=== PATIENT | female | born 1990 | race Caucasian/White ===

== ENCOUNTER → 2018-09-29 13:57 | Outpatient (CLI) | payer OTHER, MEDICAID, SELFPAY ==
[2018-09-29 15:06] LABS: Cholesterol 170 mg/dL (140-199); HDL Cholesterol 99 mg/dL (40-60); LDL Cholesterol Calculated 63 mg/dL (<100); Triglycerides 39 mg/dL (35-150)
[2018-09-29 15:24] LABS: Vitamin D 25 Hydroxy (D3) 43.6 ng/mL (30.0-100.0)
== END ==
PROVIDERS: PCP Student in an Organized Health Care Education/Training Program; Visit Provider Student in an Organized Health Care Education/Training Program
DX: Z13.220 Encounter for screening for lipoid disorders (principal); E55.9 Vitamin D deficiency, unspecified
CPT/HCPCS: 36415; 80061; 82306

== ENCOUNTER → 2019-07-12 12:39 | Outpatient (CLI) | payer OTHER, MEDICAID, SELFPAY ==
--- NOTE | 2019-07-12 12:52 | DI.RAD.S_ITS ---
PROCEDURE: XR CHEST 2V INDICATIONS: FUO TECHNIQUE: 2 views of the chest were acquired. COMPARISON: [facility], BREAST UNILATERAL LIMITED, 05/10/2017, 10:06. [facility], BREAST UNILATERAL LIMITED, 05/10/2017, 10:14. FINDINGS: Surgical changes and devices: None. Lungs and pleura: Lungs are clear. No pleural effusions or pneumothorax. Mediastinum: Mediastinal contours are normal. Heart size is normal. Bones and chest wall: No suspicious bony abnormalities. Prominent dextroconvex curvature of the lower thoracic spine are present. No Soft tissues appear unremarkable. IMPRESSION: No acute cardiopulmonary process is evident. Dictated by: Ton Spaulding M.D. on 07/12/2019 at 15:11 Approved by: Ton Spaulding M.D. on 07/12/2019 at 15:36
[2019-07-12 12:57] LABS: Add Manual Diff / Slide Review NO; Basophils Absolute Auto 0 /uL (0-100); Basophils Percent Auto 0.6 % (0-2); Eosinophils Absolute Auto 100 /uL (0-450); Eosinophils Percent Auto 1.9 % (2-4); Hematocrit 42.5 % (36-46); Hemoglobin 14.2 g/dL (12.0-16.0); Lymphocytes Absolute Auto 1800 /uL (1100-4500); Lymphocytes Percent Auto 24.6 % (25-40); Mean Corpuscular HGB Conc 33.4 % (30-36); Mean Corpuscular Hemoglobin 29.9 PG (26-34); Mean Corpuscular Volume 89.4 fL (80-100); Monocytes Absolute Auto 600 /uL (0-900); Monocytes Percent Auto 8.3 % (3-14); Neutrophils Absolute Auto 4800 /uL (1500-7000); Neutrophils Percent Auto 64.6 % (50-75); Platelet Count 205 X10^3/uL (150-400); Red Blood Cell Count 4.75 X10^6/uL (4.0-5.2); Red Cell Distribution Width 13.4 % (11.6-14.8); White Blood Cell Count 7.4 X10^3/uL (4.5-11.0)
[2019-07-12 13:32] LABS: Erythrocyte Sedimentation Rate 1 MM/HR (0-20)
[2019-07-12 13:52] LABS: Appearance Urine UA CLEAR; Bilirubin Urine UA NEGATIVE (NEGATIVE); Color Urine UA YELLOW; Glucose Urine UA NEGATIVE (Negative); Ketones Urine UA NEGATIVE (NEGATIVE); Leukocyte Esterase Urine UA NEGATIVE (NEGATIVE); Nitrite Urine UA NEGATIVE (Negative); Occult Blood Urine UA NEGATIVE (Negative); Protein Urine UA NEGATIVE (Negative); Specific Gravity Urine UA <=1.005 (1.000-1.035); Urobilinogen Urine UA 0.2 E.U./dL (0.2); pH Urine UA 6.5 (4.5-8.0)
== END ==
PROVIDERS: PCP Student in an Organized Health Care Education/Training Program; Visit Provider Nurse Practitioner
DX: R50.9 Fever, unspecified (principal); R10.2 Pelvic and perineal pain; N89.8 Other specified noninflammatory disorders of vagina
CPT/HCPCS: 36415; 71046; 81003; 85025; 85651; 87070; 87205

== ENCOUNTER → 2019-07-14 10:43 | Outpatient (CLI) | payer OTHER, MEDICAID, SELFPAY ==
--- NOTE | 2019-07-14 10:45 | DI.US.S_ITS ---
LIMITED ULTRASOUND OF LEFT BREAST: 07/14/2019 CLINICAL: Palpable left breast lump. Comparison is made to exam dated: 05/10/2017 [facility]. Color flow and real-time ultrasound of the left breast 1-2 o'clock region were performed. Dukes scale images of the real-time examination were reviewed. Targeted ultrasound was performed in the region of the patient's reported focal palpable area of concern in the left breast at 1:30 position 5 cm from the nipple. There is dense fibroglandular tissue with an underlying partially imaged breast implant. No underlying breast mass or abnormality is identified. IMPRESSION: BENIGN 1) Dense fibroglandular tissue overlying the patient's breast implant are identified at the area of palpable concern. No suspicious masses or abnormalities are identified at the area of concern in the left breast at 1:30 position 5 cm from the nipple. Recommend clinical follow-up for further evaluation and management of the patient's reported symptoms. 2) There is no sonographic evidence of malignancy in the imaged areas of the left breast. Annual screening mammography beginning at age 40 is recommended, unless earlier high-risk screening is warranted due to individual patient risk factors for the development of breast malignancy. The patient is advised to monitor her breasts and to return sooner for re-evaluation should she feel anything grow or change. This exam was interpreted at Station ID: [id number]. Electronically Signed By: Stephan Fernando M.D. ecl/:07/14/2019 11:28:19 letter sent: Clinical Evaluation Ultrasound BI-RADS: 2 Benign
--- NOTE | 2019-07-14 10:45 | DI.US.S_ITS ---
PROCEDURE: US PELVIC COMPLETE INDICATIONS: PELVIC PAIN, VAGINAL DISCHARGE, SWOLLEN INGUINAL LYMPH NODES TECHNIQUE: Real-time scanning was performed of the pelvic organs, with image documentation. Additional endovaginal scanning was necessary due to incomplete visualization of the adnexal and endometrial structures by transabdominal scanning. COMPARISON: [facility], , PELVIC COMPLETE, 07/28/2017, 10:29. [facility], , PELVIC COMPLETE, 10/28/2018, 11:43. FINDINGS: Transabdominal scanning: Limited scanning through the kidneys shows a mild degree of hydronephrosis of the right kidney. There is a mild amount of free pelvic fluid seen, which is considered to be within physiologic limits. Prominent groin lymph nodes are seen. Endovaginal scanning: Uterus: Uterus is normal in size at 9.2 x 3.8 x 5.1 cm. The endometrium measures 13 mm in combined thickness. Blood flow can be seen along the endometrial stripe there is a mild degree of nonvascular debris is seen along the endometrial stripe itself. An IUD is seen, within the lower uterine segment. Ovaries: The right ovary measures 5.2 x 3.6 x 5.3 cm within the right ovary, there is a complex cyst with a fishnet-type echotexture that measures up to 4.5 cm. The left ovary measures 3.2 x 1.9 x 2.2 cm and demonstrates an unremarkable appearance. No adnexal masses are seen. IMPRESSION: An IUD is seen within the lower uterine segment. A mild degree of debris can be seen along the endometrial stripe, which is attributed to blood. However, please correlate with known patient history. Mild right-sided hydronephrosis. There is a likely 4.5 cm hemorrhagic cyst involving the right ovary. At clinical discretion, a followup pelvic ultrasound is suggested in 6 weeks to assure resolution/ improvement. Dictated by: Jason Meng M.D. on 07/14/2019 at 15:49 Approved by: Jason Meng M.D. on 07/14/2019 at 15:53
== END ==
PROVIDERS: PCP Student in an Organized Health Care Education/Training Program; Visit Provider Hospitalist
DX: N63.21 Unspecified lump in the left breast, upper outer quadrant (principal); R10.2 Pelvic and perineal pain; R59.0 Localized enlarged lymph nodes; N89.8 Other specified noninflammatory disorders of vagina; N83.292 Other ovarian cyst, left side; N13.30 Unspecified hydronephrosis; Z98.82 Breast implant status; Z97.5 Presence of (intrauterine) contraceptive device
CPT/HCPCS: 76642; 76830; 76856

== ENCOUNTER → 2019-10-27 16:09 | Outpatient (CLI) | payer OTHER, MEDICAID, SELFPAY ==
--- NOTE | 2019-10-27 16:12 | DI.US.S_ITS ---
PROCEDURE: US PELVIC COMPLETE INDICATIONS: SWOLLEN LYMPH NODES, GROIN, RTO COMPLEX CYST TECHNIQUE: Real-time scanning was performed of the pelvic organs, with image documentation. Additional endovaginal scanning was necessary due to incomplete visualization of the adnexal and endometrial structures by transabdominal scanning. COMPARISON: [facility], , US PELVIC COMPLETE, 07/14/2019, 11:21. FINDINGS: Transabdominal scanning: Limited scanning through the kidneys shows no hydronephrosis. No pathologic free abdominal or pelvic fluid. Endovaginal scanning: Uterus: Uterus is normal in size at 9.1 x 3.4 x 4.3 cm. The endometrium measures 3.1 mm in combined thickness. No endometrial mass or fluid is seen. Ovaries: Right ovary measures 3.9 x 2.6 x 3.4 cm in size and is within normal limits. Left ovary measures 4.8 x 3.2 x 4 cm in size and contain multiple complex appearing cystic structures. The 2 largest ones measures 1.5 x 1.5 x 1.6 cm and 2.2 x 1.8 x 2.1 cm in size. Prominent bilateral inguinal lymph nodes are seen measures up to 1.5 cm in size on right side and measures up to 1.4 cm in size on the left side. IMPRESSION: 1. Multiple complex cysts in left ovary as above, sonographic followup is recommended. Normal-appearing right ovary. 2. Normal appearing uterus and endometrium. 3. Nonspecific mildly enlarged bilateral inguinal lymph nodes as above. Dictated by: John Paige M.D. on 10/27/2019 at 21:00 Approved by: John Paige M.D. on 10/27/2019 at 21:04
== END ==
PROVIDERS: Family Provider Student in an Organized Health Care Education/Training Program; PCP Student in an Organized Health Care Education/Training Program; Visit Provider Nurse Practitioner
DX: R59.0 Localized enlarged lymph nodes (principal); N83.292 Other ovarian cyst, left side
CPT/HCPCS: 76830; 76856

== ENCOUNTER → 2019-11-13 09:41 | Outpatient (CLI) | payer OTHER, MEDICAID, SELFPAY ==
--- NOTE | 2019-11-13 | PATH_ITS ---
Note [facility] Accession Number: [id number] TESTS RESULT FLAG UNITS REF RANGE LAB Clinician Provided Cytology Information No. of containers..01 ThinPrep Vial No. of containers..07 Previously Prepared Cytology Slide LEFT GROIN DIAGNOSIS: 02 LEFT GROIN NEGATIVE FOR CYTOLOGICALLY MALIGNANT CELLS. VERY SCANTLY CELLULAR SPECIMEN. PLEASE SEE COMMENT. COMMENT: Poorly preserved, small lymphocytes present on one pass. If lymphadenopathy persists, surgical extirpation could be considered, if clinically appropriate. Pathologist ICD10: 02 R59.9 PATHOLOGY FOR MALIGNANCY Coral Hernadez MD, Pathologist NPI- [id number] Jeevan [place], [employer] ([facility]) 01 30 CC, CLEAR, CLEAR RECEIVED: 2 ALCOHOL FIXED AND 5 QUICK STAINED SLIDES. /[facility] 11/14/[address] [place] [address] FLAG LEGEND: L-Low Normal,H-High Normal,LL-Alert Low,HH-Alert High <-Panic Low,>-Panic High,A-Abnormal,AA-Critical Abnormal Performed at: 01 =Z [facility] [address], [place] [address] Mikhail Cartagena MD, 02 [facility] [address] [place] [phone] Lorie Callaway MD, Specimen Comment: A duplicate report has been generated due to demographic updates. Performed at: 01 [facility] [address], [place], [place] [id number] MD Mikhail Cratagena MD Phone: [phone]
--- NOTE | 2019-11-13 09:45 | DI.US.S_ITS ---
PROCEDURE: US FINE NEEDLE ASPIRATION INDICATIONS: LYMPH NODE ENLARGEMENT TECHNIQUE: The indications, alternatives, benefits, risks, and complications of the procedure were explained to the patient. Written informed consent was obtained and placed in the chart. Real-time sonography was utilized to choose the site for percutaneous lymph node sampling. The skin was prepped and draped in the usual sterile fashion. 1% lidocaine was infiltrated down to the site of interest. Serial hypodermic needles were then advanced into the site of interest under direct sonographic visualization, and serial needle aspirates were obtained. The needles were then withdrawn; a bandage was applied to the procedure site. COMPARISON: None. FINDINGS: There are multiple right and left inguinal lymph nodes however sonographically these appear grossly unremarkable. No definite cortical thickening. These are reportedly clinically worsened over time Sample site(s): Right and left inguinal lymph nodes Needle: 22 and 25 gauge. Number of passes: 7 passes on the left. 5 passes on the right.. Medications: 1% lidocaine for local anaesthesia. Complications: None. IMPRESSION: Successful ultrasound-guided bilateral inguinal lymph node fine needle aspiration, with cytology results pending. Dictated by: Kishor Vazquez M.D. on 11/13/2019 at 16:49 Approved by: Kishor Vazquez M.D. on 11/13/2019 at 16:51
--- NOTE | 2019-11-13 11:15 | PATH_ITS ---
Note [facility] Accession Number: [id number] TESTS RESULT FLAG UNITS REF RANGE LAB Clinician Provided Cytology Information No. of containers..01 Other (Miscellaneous) No. of containers..00 Previously Prepared Cytology Slide RIGHT GROIN DIAGNOSIS: 02 RIGHT GROIN NEGATIVE FOR CYTOLOGICALLY MALIGNANT CELLS. PLEASE SEE COMMENT. COMMENT: Please correlate with clinical and imaging findings. If lymphadenopathy persists, surgical extirpation could be considered, if clinically appropriate. Pathologist ICD10: 02 R59.9 PATHOLOGY FOR MALIGNANCY Coral Hernadez MD, Pathologist NPI- [id number] Magdi Hung, [employer]in[employer] Technician ([facility]) 01 20 CC, PALE PINK, CLEAR RECEIVED: 5 ALCOHOL FIXED AND 5 QUICK STAINED SLIDES. /[facility] 11/14/[address] [place] [address] FLAG LEGEND: L-Low Normal,H-High Normal,LL-Alert Low,HH-Alert High <-Panic Low,>-Panic High,A-Abnormal,AA-Critical Abnormal Performed at: 01 =Z [facility] [address], [place] [address] Mikhail Cartagena MD, 02 [facility] [address] [place] [phone] Lorie Callaway MD, Specimen Comment: A duplicate report has been generated due to demographic updates. Performed at: [address] [facility] [address] [facility], [place], [place] [id number] MD Mikhail Cartagena MD Phone: [phone]
== END ==
PROVIDERS: Family Provider Student in an Organized Health Care Education/Training Program; PCP Student in an Organized Health Care Education/Training Program; Visit Provider Nurse Practitioner
DX: R59.0 Localized enlarged lymph nodes (principal); R10.2 Pelvic and perineal pain
CPT/HCPCS: 10005; 10006

== ENCOUNTER → 2020-02-12 10:21 | Outpatient (CLI) | payer OTHER, MEDICAID, SELFPAY ==
--- NOTE | 2020-02-12 10:23 | DI.US.S_ITS ---
PROCEDURE: US PELVIC COMPLETE INDICATIONS: FOLLOW-UP LEFT OVARIAN CYSTS TECHNIQUE: Real-time scanning was performed of the pelvic organs, with image documentation. Additional endovaginal scanning was necessary due to incomplete visualization of the adnexal and endometrial structures by transabdominal scanning. COMPARISON: [facility], US, US PELVIC COMPLETE, 10/28/2018, 11:43. FINDINGS: Transabdominal scanning: Limited scanning through the kidneys shows no hydronephrosis. No pathologic free abdominal or pelvic fluid. Endovaginal scanning: Uterus: Uterus is normal in size at the 9.3 x 4.2 x 5.3 cm. The endometrium measures 5 mm in combined thickness. An intrauterine contraceptive device appears to be appropriately positioned within the uterine cavity. No focal myometrial lesions are identified. Ovaries: The right ovary measures 2.5 x 2.0 x 2.8 cm predominant follicle is present on the right ovary measuring up to 1.7 cm. The right ovary is otherwise unremarkable. The left ovary is enlarged and measures 3.4 x 2.1 x 4.7 cm and contains at least 3 separate isoechoic lesions without internal vascularity but range in size from 1.9-2.3 cm. At least 2 of these isoechoic lesions may be unchanged since the prior study. IMPRESSION: 1. Rounded nonvascular lesions within the left ovary may represent endometriomas. At least 2 are probably unchanged. There may be a new 3rd lesion. A pelvis MRI with contrast is recommended for further evaluation. 2. Unremarkable right ovary and uterus. Dictated by: Ton Spaulding M.D. on 02/12/2020 at 11:58 Approved by: Ton Spaulding M.D. on 02/12/2020 at 12:03
== END ==
PROVIDERS: Family Provider Student in an Organized Health Care Education/Training Program; PCP Student in an Organized Health Care Education/Training Program; Referring Provider Student in an Organized Health Care Education/Training Program; Visit Provider Student in an Organized Health Care Education/Training Program
DX: N83.202 Unspecified ovarian cyst, left side (principal); R59.1 Generalized enlarged lymph nodes; Z97.5 Presence of (intrauterine) contraceptive device
CPT/HCPCS: 76830; 76856

== ENCOUNTER 2022-01-01 17:05 | Emergency (ER) | payer OTHER, SELFPAY ==
[2022-01-01 17:16] VITALS: BP 134/81; PULSE 94; RESP 17; TEMP 36.9; O2SAT 100; BMI 19.1
== END 2022-01-01 19:35 | disposition left against medical advice (07) ==
PROVIDERS: Emergency Provider Emergency Medicine; Family Provider Student in an Organized Health Care Education/Training Program
DX: R10.9 Unspecified abdominal pain (principal)
CPT/HCPCS: 99281

== ENCOUNTER 2022-07-11 20:03 | Inpatient (IN) | payer OTHER, MEDICAID, SELFPAY ==
[2022-07-11 20:10] VITALS: BP 133/75; PULSE 118; RESP 18; TEMP 37.3; O2SAT 98; BMI 21.4
--- NOTE | 2022-07-11 20:24 | ED.ABDPAIN ---
HPI - Abdominal Pain General Chief Complaint: Abdominal Pain Stated Complaint: Extreme ABD pain Time Seen by Provider: 07/11/22 20:23 Source: patient Mode of arrival: Ambulatory History of Present Illness HPI narrative: 32-year-old female nonsmoker without chronic medical history presents with 2 weeks of gradually worsening generalized abdominal pain. She denies obvious provocation or palliation. She states that the pain seems to wander across her abdomen and over the past 2 days has become increasingly severe and more constant. She states the pain comes and goes with a mind of its own but when it is there it lasts for a few minutes and then resolves. She is had a significant number of loose stools over the past 2 days, stating it could be upwards of 30-40 episodes of diarrhea. She denies dizziness, weakness or lightheadedness. She has no fever or chills. She denies any new medications or recent antibiotic use. She is had no recent international travel, exposure to bad food or other sick people. Related Data Previous Rx's Medication Instructions Recorded clonazepam 0.5 mg tablet 0.5 mg PO DAILY PRN anxiety #30 06/24/22 tabs Allergies Allergy/AdvReac Type Severity Reaction Status Date / Time No Known Drug Allergies Allergy Verified 03/10/22 11:46 Review of Systems Review of Systems Narrative: GENERAL: See HPI HEENT: Denies sinus pain, ear pain, sore throat, difficulty swallowing, dizziness. RESPIRATORY: Denies dyspnea, cough, wheezing, hemoptysis, sputum. CARDIOVASCULAR: Denies chest pain, palpitations, orthopnea, edema, GASTROINTESTINAL: See HPI : Denies dysuria, frequency, incontinence, hematuria, urinary retention. MUSCULOSKELETAL: denies weakness, joint pain, or bony pain SKIN: Denies rash, skin lesions, or other NEUROLOGIC: Denies weakness, headache, numbness, change in speech, confusion, seizures, incoordination. PSYCHIATRIC: No concerning psychosocial issues. 12 point review of systems is negative except for those stated above Patient History Medical History Acne Anxiety as acute reaction to exceptional stress (04/30/17) Eczema (2002) FHx: melanoma Generalized anxiety disorder with panic attacks Intentional weight loss Scoliosis of thoracolumbar spine Surgical History History of breast augmentation (04/2016) Family History Mother Cancer Father No problems noted. Grandmother Cancer Social History Smoking Status: Never smoker Smoking Status: Never smoker alcohol intake frequency: 0-2 drinks per day Alcohol type: wine Substance Use Type: marijuana and other Exam Narrative Exam Narrative: GENERAL: [32] year old patient appears stated age. Well-developed patient, in mild distress. HEAD: Atraumatic. Normocephalic. EYES: Pupils equal round and reactive. Extraocular motions intact. No scleral icterus. No injection or drainage. ENT: Nose without bleeding, purulent drainage. Throat without erythema, tonsillar hypertrophy or exudate. Airway patent. NECK: Trachea midline. Non tender CARDIOVASCULAR: Regular rate and rhythm without murmurs, gallops, or rubs. RESPIRATORY: Clear to auscultation. Breath sounds equal bilaterally. No wheezes, rales, or rhonchi. GASTROINTESTINAL: Abdomen soft, non-tender, nondistended. Bowel sounds present in all 4 quadrants EXTREMITIES: No edema or joint tenderness. BACK: Nontender without deformity or crepitance. No flank tenderness. NEURO: AOx3. SKIN: No rash or erythema of visible areas Initial Vital Signs Initial Vital Signs: Vital Signs Temperature 99.1 F 07/11/22 20:10 Pulse Rate 118 H 07/11/22 20:10 Respiratory Rate 18 07/11/22 20:10 Blood Pressure 133/75 07/11/22 20:10 Pulse Oximetry 98 07/11/22 20:10 Oxygen Delivery Method 07/11/22 20:10 Course Orders Ordered: ED Orders 07/11/22 20:15 Complete Blood Count AUTO DIFF Stat Comprehensive Metabolic Panel Stat Lipase Stat 07/11/22 20:21 EKG-12 Lead Stat 07/11/22 20:34 GI Panel (Film Array) Stat 07/11/22 20:57 CT abdomen pelvis w con Stat 07/11/22 23:25 COVID19 -Nasal RAPID/Pre-Proc Stat Discontinued Medications Sodium Chloride (Normal Saline 0.9%) 1,000 mls @ 1,000 mls/hr IV BOLUS ONE Stop: 07/11/22 21:35 Last Infusion: 07/11/22 22:00 Dose: 0 mls/hr Documented By: Admin: 07/11/22 20:37 Dose: 1,000 mls/hr Documented By: AP Vital Signs Vital signs: Vital Signs - 8 hr 07/11/22 20:10 07/11/22 20:43 07/11/22 21:00 Temperature 99.1 F Pulse Rate 118 H 84 81 Respiratory Rate 18 Blood Pressure 133/75 Pulse Oximetry 98 100 100 Oxygen Delivery Method Room Air 07/11/22 21:44 07/11/22 21:45 07/11/22 21:45 Temperature Pulse Rate 96 H 99 H Respiratory Rate Blood Pressure 123/74 Pulse Oximetry 90 L 100 Oxygen Delivery Method MDM - Abdominal Pain Lab Data Result diagrams: 07/11/22 20:15 07/11/22 20:15 Labs: Lab Results 07/11/22 07/11/22 07/11/22 Range/Units 20:15 20:15 20:34 WBC 12.5 H (4.5-11.0) X10^3/uL RBC 4.59 (4.0-5.2) X10^6/uL Hgb 13.2 (12.0-16.0) g/dL Hct 38.9 (36-46) % MCV 84.9 (80-100) fL MCH 28.8 (26-34) PG MCHC 33.9 (30-36) % RDW 13.1 (11.6-14.8) % Plt Count 192 (150-400) X10^3/uL Neut % (Auto) 78.6 H (50-75) % Lymph % (Auto) 11.4 L (25-40) % [place] % (Auto) 8.5 (3-14) % Eos % (Auto) 0.7 L (2-4) % Baso % (Auto) 0.8 (0-2) % Neut # (Auto) 9800 H (0301-0587) /uL Lymph # (Auto) 1400 (3088-8009) /uL [place] # (Auto) 1100 H (0-900) /uL Eos # (Auto) 100 (0-450) /uL Baso # (Auto) 100 (0-100) /uL Sodium 134 L (137-145) mmol/L Potassium 3.3 L (3.4-5.1) mmol/L Chloride 104 (98-107) mmol/L Carbon Dioxide 23 (22-32) mmol/L BUN 5 L (7-17) mg/dL Creatinine 0.83 (0.52-1.04) mg/dL Estimated GFR > 60 (>60) mL/min BUN/Creatinine Ratio 6.0 (6-22) Glucose 140 H (70-100) mg/dL Calcium 8.5 (8.4-10.2) mg/dL Total Bilirubin 0.2 (0.2-1.3) mg/dL AST 20 (14-36) IU/L ALT 16 (<35) IU/L Alkaline Phosphatase 68 (38-126) U/L Total Protein 6.7 (6.3-8.2) g/dL Albumin 3.9 (3.5-5.0) g/dL Globulin 2.8 (1.7-4.1) g/dL Albumin/Globulin Ratio 1.4 (1.0-2.8) Lipase 46 (23-300) U/L Stl C. cayetanensis PCR Not detected (Not Detect) Stool Rotavirus (PCR) Not detected (Not Detect) Stool Adenovirus (PCR) Not detected (Not Detect) Stool Astrovirus (PCR) Not detected (Not Detect) Stool Cryptosporidium PCR Not detected (Not Detect) Stl E.coli Shiga Tox PCR Detected H (Not Detect) St Sh/Enteroin Ecoli PCR Not detected (Not Detect) Stool E coli O157 PCR Not Reportable Stl Enterotoxigenic E PCR Not detected (Not Detect) Stool EPEC (PCR) Not Reportable Stl E. histolytica PCR Not detected (Not Detect) Stool Giardia Lamblia PCR Not detected (Not Detect) Stool Sapovirus (PCR) Not detected (Not Detect) Stl P. shigelloides PCR Not detected (Not Detect) St Y.enterocolitica PCR Not detected (Not Detect) Stool Vibrio (PCR) Not detected (Not Detect) Stl Vibrio cholerae PCR Not detected (Not Detect) Stl Enteroaggr Ecoli PCR Not detected (Not Detect) Stl Norovirus GI/GII PCR Not detected (Not Detect) Campylobacter (PCR) Not detected (Not Detect) C. difficile Tox (PCR) Not detected (Not Detect) SARS-CoV-2 (PCR) (Negative) Salmonella (PCR) Not detected (Not Detect) 08/27/22 Range/Units 23:25 WBC (4.5-11.0) X10^3/uL RBC (4.0-5.2) X10^6/uL Hgb (12.0-16.0) g/dL Hct (36-46) % MCV (80-100) fL MCH (26-34) PG MCHC (30-36) % RDW (11.6-14.8) % Plt Count (150-400) X10^3/uL Neut % (Auto) (50-75) % Lymph % (Auto) (25-40) % [place] % (Auto) (3-14) % Eos % (Auto) (2-4) % Baso % (Auto) (0-2) % Neut # (Auto) (3591-2762) /uL Lymph # (Auto) (2937-0773) /uL [place] # (Auto) (0-900) /uL Eos # (Auto) (0-450) /uL Baso # (Auto) (0-100) /uL Sodium (137-145) mmol/L Potassium (3.4-5.1) mmol/L Chloride (98-107) mmol/L Carbon Dioxide (22-32) mmol/L BUN (7-17) mg/dL Creatinine (0.52-1.04) mg/dL Estimated GFR (>60) mL/min BUN/Creatinine Ratio (6-22) Glucose (70-100) mg/dL Calcium (8.4-10.2) mg/dL Total Bilirubin (0.2-1.3) mg/dL AST (14-36) IU/L ALT (<35) IU/L Alkaline Phosphatase (38-126) U/L Total Protein (6.3-8.2) g/dL Albumin (3.5-5.0) g/dL Globulin (1.7-4.1) g/dL Albumin/Globulin Ratio (1.0-2.8) Lipase (23-300) U/L Stl C. cayetanensis PCR (Not Detect) Stool Rotavirus (PCR) (Not Detect) Stool Adenovirus (PCR) (Not Detect) Stool Astrovirus (PCR) (Not Detect) Stool Cryptosporidium PCR (Not Detect) Stl E.coli Shiga Tox PCR (Not Detect) St Sh/Enteroin Ecoli PCR (Not Detect) Stool E coli O157 PCR Stl Enterotoxigenic E PCR (Not Detect) Stool EPEC (PCR) Stl E. histolytica PCR (Not Detect) Stool Giardia Lamblia PCR (Not Detect) Stool Sapovirus (PCR) (Not Detect) Stl P. shigelloides PCR (Not Detect) St Y.enterocolitica PCR (Not Detect) Stool Vibrio (PCR) (Not Detect) Stl Vibrio cholerae PCR (Not Detect) Stl Enteroaggr Ecoli PCR (Not Detect) Stl Norovirus GI/GII PCR (Not Detect) Campylobacter (PCR) (Not Detect) C. difficile Tox (PCR) (Not Detect) SARS-CoV-2 (PCR) Negative (Negative) Salmonella (PCR) (Not Detect) Point of care testing: Point of Care Testing Test Results Negative Urine Dip Bedside Urine Glucose Negative Bedside Urine Bilirubin - Negative Bedside Urine Ketone - Negative Urine Specific [place] 1.005 Bedside Urine Occult Blood - Negative Bedside Urine pH 6.0 Bedside Urine Protein - Negative Bedside Urine Urobilinogen - Negative Bedside Urine Nitrite - Negative Bedside Urine Leukocytes - Negative Esterase Imaging Data CT scan - abdomen/pelvis: Radiologist's Impression: [address] [address] [address] Scan Report Signed Patient: Awilda Miller MR#: [id number] : 1990 Acct:[id number] Age/Sex: 32 / F Date of Service: 07/11/22 Loc: ED Accession Number: [id number] ?? Procedure: CT abdomen pelvis w con Ordering Provider: Ang Bocanegra D.O. PROCEDURE:? CT ABDOMEN PELVIS W CON ? INDICATIONS:? severe, worsening lower abdominal pain, tachycardia, WBCs ? TECHNIQUE:? After the administration of intravenous contrast, axial sections acquired from the lung bases to the pubic symphysis.? Coronal and sagittal reformats were performed.? For radiation dose reduction, the following was used:? automated exposure control, adjustment of mA and/or kV according to patient size.? ? COMPARISON:? None. ? FINDINGS:? Image quality:? Excellent.? ? Lung bases:? Unremarkable. Heart:? No significant findings. ? ABDOMEN: Liver:? Unremarkable.? ? Gallbladder:? Unremarkable.? ? Biliary ducts:? Unremarkable.? ? Pancreas:? Unremarkable.? ? Spleen:? Unremarkable.? ? Adrenal Glands:? Unremarkable.? ? Kidneys and Ureters:? Unremarkable.? ? ? Stomach and Bowel:? Stomach and small bowel loops are unremarkable.? The left colon appears normal but the right colon from the cecum cephalad almost to the hepatic flexure shows abnormal mural thickening over a craniocaudad length of 13 cm, with the colon wall in several areas measuring up to 1.6 cm-1.8 cm Peritoneum:? No abnormal intraperitoneal fluid.? No free air.? ? Ventral Wall: ? No hernias.? Abdominal Nodes:? No retroperitoneal or mesenteric adenopathy by size criteria.? Vessels:? Aorta and inferior vena cava are normal in size.? ? PELVIS: Pelvic Organs:? Unremarkable.? ? Bladder:? Unremarkable.? ? Pelvic Nodes: No enlarged lymph nodes.? Miscellaneous: No hernias are seen. ? ? ? Bones:? Unremarkable.? IMPRESSION:? Abnormal colonic wall thickening on the right from the cecum cephalad almost to the hepatic flexure with an appearance potentially a manifestation of colon carcinoma in a young patient.? Alternatively, typhlitis or Crohn's disease should be considered.? No evidence of metastatic disease is found. ? ? Dictated by: Rob Hansen M.D. on 07/11/2022 at 21:42 ? ? Approved by: Rob Hansen M.D. on 07/11/2022 at 21:47 ? MDM Narrative Medical decision making narrative: Patient with generalized if not episodic abdominal pain but 2 days of significantly worsening symptoms with profound diarrhea and a GI panel demonstrating sugar toxin producing E coli. Patient currently with improved vital signs after fluids and reassuring labs, absent of findings consistent with hemolytic uremic syndrome will require hospitalization for ongoing evaluation. Discharge Plan Departure Patient Disposition: Admitted As Inpatient Clinical Impression: Shiga toxin-producing Escherichia coli infection Admit Date/Time: 07/11/22 23:35 Admit Provider: Beto Velez
[2022-07-11 20:34] LABS: Add Manual Diff / Slide Review NO; Basophils Absolute Auto 100 /uL (0-100); Basophils Percent Auto 0.8 % (0-2); Eosinophils Absolute Auto 100 /uL (0-450); Eosinophils Percent Auto 0.7 % (2-4); Hematocrit 38.9 % (36-46); Hemoglobin 13.2 g/dL (12.0-16.0); Lymphocytes Absolute Auto 1400 /uL (1100-4500); Lymphocytes Percent Auto 11.4 % (25-40); Mean Corpuscular HGB Conc 33.9 % (30-36); Mean Corpuscular Hemoglobin 28.8 PG (26-34); Mean Corpuscular Volume 84.9 fL (80-100); Monocytes Absolute Auto 1100 /uL (0-900); Monocytes Percent Auto 8.5 % (3-14); Neutrophils Absolute Auto 9800 /uL (1500-7000); Neutrophils Percent Auto 78.6 % (50-75); Platelet Count 192 X10^3/uL (150-400); Red Blood Cell Count 4.59 X10^6/uL (4.0-5.2); Red Cell Distribution Width 13.1 % (11.6-14.8); White Blood Cell Count 12.5 X10^3/uL (4.5-11.0)
[2022-07-11 20:37] LABS: Alanine Aminotransferase 16 IU/L (<35); Albumin 3.9 g/dL (3.5-5.0); Albumin Globulin Ratio 1.4 (1.0-2.8); Alkaline Phosphatase 68 U/L (38-126); Aspartate Aminotransferase 20 IU/L (14-36); Bilirubin Total 0.2 mg/dL (0.2-1.3); Blood Urea Nitrogen 5 mg/dL (7-17); Calcium 8.5 mg/dL (8.4-10.2); Carbon Dioxide 23 mmol/L (22-32); Chloride 104 mmol/L (98-107); Estimated Glomerular Filt Rate > 60 mL/min (>60); Globulin 2.8 g/dL (1.7-4.1); Glucose 140 mg/dL (70-100); HEMOLYSIS < 15 (0-50); Lipase 46 U/L (23-300); Potassium 3.3 mmol/L (3.4-5.1); Sodium 134 mmol/L (137-145); Total Protein 6.7 g/dL (6.3-8.2)
[2022-07-11] MEDS: SODIUM CHLORIDE 0.9% 1,000 ML 1000 ML IV (20:37)
[2022-07-11 20:43] VITALS: PULSE 84; O2SAT 100
--- NOTE | 2022-07-11 20:57 | DI.CT.S_ITS ---
PROCEDURE: CT ABDOMEN PELVIS W CON INDICATIONS: severe, worsening lower abdominal pain, tachycardia, WBCs TECHNIQUE: After the administration of intravenous contrast, axial sections acquired from the lung bases to the pubic symphysis. Coronal and sagittal reformats were performed. For radiation dose reduction, the following was used: automated exposure control, adjustment of mA and/or kV according to patient size. COMPARISON: None. FINDINGS: Image quality: Excellent. Lung bases: Unremarkable. Heart: No significant findings. ABDOMEN: Liver: Unremarkable. Gallbladder: Unremarkable. Biliary ducts: Unremarkable. Pancreas: Unremarkable. Spleen: Unremarkable. Adrenal Glands: Unremarkable. Kidneys and Ureters: Unremarkable. Stomach and Bowel: Stomach and small bowel loops are unremarkable. The left colon appears normal but the right colon from the cecum cephalad almost to the hepatic flexure shows abnormal mural thickening over a craniocaudad length of 13 cm, with the colon wall in several areas measuring up to 1.6 cm-1.8 cm Peritoneum: No abnormal intraperitoneal fluid. No free air. Ventral Wall: No hernias. Abdominal Nodes: No retroperitoneal or mesenteric adenopathy by size criteria. Vessels: Aorta and inferior vena cava are normal in size. PELVIS: Pelvic Organs: Unremarkable. Bladder: Unremarkable. Pelvic Nodes: No enlarged lymph nodes. Miscellaneous: No hernias are seen. Bones: Unremarkable. IMPRESSION: Abnormal colonic wall thickening on the right from the cecum cephalad almost to the hepatic flexure with an appearance potentially a manifestation of colon carcinoma in a young patient. Alternatively, typhlitis or Crohn's disease should be considered. No evidence of metastatic disease is found. Dictated by: Rob Hansen M.D. on 07/11/2022 at 21:42 Approved by: Rob Hansen M.D. on 07/11/2022 at 21:47
[2022-07-11 21:00] VITALS: PULSE 81; O2SAT 100
[2022-07-11 21:44] VITALS: PULSE 96; O2SAT 90
[2022-07-11 21:45] VITALS: BP 123/74; PULSE 99; O2SAT 100
[2022-07-11 22:18] LABS: Campylobacter Not Detected (Not Detect); Clostridium difficile toxin AB Not Detected (Not Detect); Enteroaggregative E.coli Not Detected (Not Detect); Plesiomonsa shigelloides Not Detected (Not Detect); Salmonella Not Detected (Not Detect); Vibrio Not Detected (Not Detect); Vibrio cholerae Not Detected (Not Detect); Yersinia enterocolitica Not Detected (Not Detect)
[2022-07-11 22:19] LABS: Enterotoxigenic E.coli It/st Not Detected (Not Detect)
[2022-07-11 22:20] LABS: Adenovirus F 40/41 Not Detected (Not Detect); Astrovirus Not Detected (Not Detect); Cryptosporidium Not Detected (Not Detect); Cyclospora cayetanensis Not Detected (Not Detect); Entamoeba histolytica Not Detected (Not Detect); Giardia lamblia Not Detected (Not Detect); Norovirus GI/GII Not Detected (Not Detect); Rotavirus A Not Detected (Not Detect); Sapovirus Not Detected (Not Detect); Shigella/Enteroinvasive E.coli Not Detected (Not Detect)
--- NOTE | 2022-07-11 22:55 | PM.HP.1 ---
History of Present Illness History of Present Illness Date Patient Seen: 07/11/22 Time Patient Seen: 23:00 Chief complaint: Extreme ABD pain Narrative: Ms. Miller is a 32W who has been good state of health who now presents with abdominal discomfort and diarrhea. She noted abdominal pain beginning approximately 2 weeks ago. She then had improvement in her symptoms, except for intermittent bloating, discomfort and diarrhea. Yesterday she notably worsened developing frequent diarrhea. Today she had profuse diarrhea, she believes with blood, she felt lightheaded and weak. She had nausea. No vomiting. No other sick contacts with similar symptoms. No travel In the ED workup was done, vitals notable for tachycardia in the 110s. Labs notable for WBC 12.5, hgb 13.2, plts 192. K 3.3, creatinine 0.83. Shiga toxin PCR positive. CT showed abnormal colon wall thickening from cecum to hepatic flexure which could not rule out malignancy vs infection. She was given IV fluids and admitted for further treatment. Patient History Medical History Acne Anxiety as acute reaction to exceptional stress (04/30/17) Eczema (2002) FHx: melanoma Generalized anxiety disorder with panic attacks Intentional weight loss Scoliosis of thoracolumbar spine Surgical History History of breast augmentation (04/2016) Family & Social History Family History Mother Cancer Father No problems noted. Grandmother Cancer Social History: household members spouse,children Prior Living Arrangements House Safety & Behavioral: Feels Safe in Current Yes Environment Been Physically Hurt or No Threatened By a Person Tobacco & Substance use: Smoking Status Never smoker alcohol intake frequency a few times a month Substance Use Type other Meds Home Medications and Allergies Home Medications Medication Instructions Recorded Confirmed Type clonazepam 0.5 mg tablet 0.5 mg PO DAILY PRN anxiety #30 06/24/22 06/24/22 Rx tabs Allergies Allergy/AdvReac Type Severity Reaction Status Date / Time No Known Drug Allergies Allergy Verified 03/10/22 11:46 Review of Systems Review of Systems Narrative: 14 systems reviewed and negative aside from what is noted in HPI Exam Vital Signs (past 8 hours): - 07/11/22 20:10 07/11/22 20:43 07/11/22 21:00 Temperature 99.1 F Pulse Rate 118 H 84 81 Respiratory Rate 18 Blood Pressure 133/75 Pulse Oximetry 98 100 100 Oxygen Delivery Method Room Air Oxygen Flow Rate 07/11/22 21:44 07/11/22 21:45 07/11/22 21:45 Temperature Pulse Rate 96 H 99 H Respiratory Rate Blood Pressure 123/74 Pulse Oximetry 90 L 100 Oxygen Delivery Method Oxygen Flow Rate 07/12/22 00:00 07/12/22 00:06 Temperature 99.1 F Pulse Rate 90 68 Respiratory Rate 17 17 Blood Pressure 123/81 122/74 Pulse Oximetry 98 99 Oxygen Delivery Method Room Air Oxygen Flow Rate 0 Oxygen Delivery Method Room Air Oxygen Flow Rate 0 Narrative Exam Narrative: GEN: no acute distress HEENT: dry mucous membranes, PERRL NECK: trachea midline, no JVD PULM: clear bilaterally, not labored CV: regular rate and rhythm ABD: soft, mild tenderness, +distended, no organomegaly EXT: warm and well perfused with no edema SKIN: no petechia noted NEURO: awake, alert, oriented, no focal deficits noted Objective Labs Result Diagrams: 07/11/22 20:15 07/11/22 20:15 Labs: Laboratory Results - last 24 hr 07/11/22 07/11/22 07/11/22 20:15 20:15 20:34 WBC 12.5 H RBC 4.59 Hgb 13.2 Hct 38.9 MCV 84.9 MCH 28.8 MCHC 33.9 RDW 13.1 Plt Count 192 Neut % (Auto) 78.6 H Lymph % (Auto) 11.4 L [place] % (Auto) 8.5 Eos % (Auto) 0.7 L Baso % (Auto) 0.8 Neut # (Auto) 9800 H Lymph # (Auto) 1400 [place] # (Auto) 1100 H Eos # (Auto) 100 Baso # (Auto) 100 Sodium 134 L Potassium 3.3 L Chloride 104 Carbon Dioxide 23 BUN 5 L Creatinine 0.83 Estimated GFR > 60 BUN/Creatinine Ratio 6.0 Glucose 140 H Calcium 8.5 Total Bilirubin 0.2 AST 20 ALT 16 Alkaline Phosphatase 68 Total Protein 6.7 Albumin 3.9 Globulin 2.8 Albumin/Globulin Ratio 1.4 Lipase 46 Stl C. cayetanensis PCR Not detected Stool Rotavirus (PCR) Not detected Stool Adenovirus (PCR) Not detected Stool Astrovirus (PCR) Not detected Stool Cryptosporidium PCR Not detected Stl E.coli Shiga Tox PCR Detected H St Sh/Enteroin Ecoli PCR Not detected Stool E coli O157 PCR Not Reportable Stl Enterotoxigenic E PCR Not detected Stool EPEC (PCR) Not Reportable Stl E. histolytica PCR Not detected Stool Giardia Lamblia PCR Not detected Stool Sapovirus (PCR) Not detected Stl P. shigelloides PCR Not detected St Y.enterocolitica PCR Not detected Stool Vibrio (PCR) Not detected Stl Vibrio cholerae PCR Not detected Stl Enteroaggr Ecoli PCR Not detected Stl Norovirus GI/GII PCR Not detected Campylobacter (PCR) Not detected C. difficile Tox (PCR) Not detected SARS-CoV-2 (PCR) Salmonella (PCR) Not detected 07/11/22 23:25 WBC RBC Hgb Hct MCV MCH MCHC RDW Plt Count Neut % (Auto) Lymph % (Auto) [place] % (Auto) Eos % (Auto) Baso % (Auto) Neut # (Auto) Lymph # (Auto) [place] # (Auto) Eos # (Auto) Baso # (Auto) Sodium Potassium Chloride Carbon Dioxide BUN Creatinine Estimated GFR BUN/Creatinine Ratio Glucose Calcium Total Bilirubin AST ALT Alkaline Phosphatase Total Protein Albumin Globulin Albumin/Globulin Ratio Lipase Stl C. cayetanensis PCR Stool Rotavirus (PCR) Stool Adenovirus (PCR) Stool Astrovirus (PCR) Stool Cryptosporidium PCR Stl E.coli Shiga Tox PCR St Sh/Enteroin Ecoli PCR Stool E coli O157 PCR Stl Enterotoxigenic E PCR Stool EPEC (PCR) Stl E. histolytica PCR Stool Giardia Lamblia PCR Stool Sapovirus (PCR) Stl P. shigelloides PCR St Y.enterocolitica PCR Stool Vibrio (PCR) Stl Vibrio cholerae PCR Stl Enteroaggr Ecoli PCR Stl Norovirus GI/GII PCR Campylobacter (PCR) C. difficile Tox (PCR) SARS-CoV-2 (PCR) Negative Salmonella (PCR) Assessment & Plan Assessment & Plan narrative: Ms. Miller is a 32W who presents with diarrhea. 1. Shiga toxiin producing E. Coli, acute gastroenteritis -shiga toxin positive -reported to public health -IV fluids to maintain euvolemia -normal hgb, wbc, creatinine, no evidence of HUS -avoid antibiotics, avoid agents that slow gut motility -suspect CT findings related to infection, follow up with PCP as necessary pending clinical course -contact precautions CODE: Full Proxy: Mata Miller I have utilized all available resources to reconcile the patient's home medications Time Spent With Patient Critical Care time: I spent a total of [] minutes of critical care time on this patient's care today; this time is exclusive of procedural time. Quality VTE Deep Vein Thrombosis/Pulmonary Embolism Present on Admission: No
[2022-07-11 23:38] VITALS: BMI 21.4
[2022-07-11 23:55] LABS: COVID19 -Nasal RAPID Negative (Negative)
[2022-07-12] VITALS (8 sets, daily range): BP systolic 104–123; BP diastolic 61–81; PULSE 68–94; RESP 16–18; TEMP 36.9–38; O2SAT 95–99
[2022-07-12] MEDS: SODIUM CHLORIDE 0.9% 1,000 ML 125 ML IV ×3 (00:20→18:19)
[2022-07-12] MEDS: ACETAMINOPHEN 325 MG TABLET 650 MG PO (01:37)
--- NOTE | 2022-07-12 01:46 | PC.NURSE ---
pt stool guiaced and tested positive @0130 on 07/12/2022. Provider Beto Velez MD notified @0150 on 07/12/2022. No new orders were given at this time and instructed to continue with current interventions.
[2022-07-12 07:08] LABS: Add Manual Diff / Slide Review NO; Basophils Absolute Auto 0 /uL (0-100); Basophils Percent Auto 0.3 % (0-2); Eosinophils Absolute Auto 100 /uL (0-450); Eosinophils Percent Auto 1.2 % (2-4); Hematocrit 36.5 % (36-46); Hemoglobin 12.4 g/dL (12.0-16.0); Lymphocytes Absolute Auto 1100 /uL (1100-4500); Lymphocytes Percent Auto 10.5 % (25-40); Mean Corpuscular Hemoglobin 28.8 PG (26-34); Mean Corpuscular Volume 84.8 fL (80-100); Monocytes Absolute Auto 1000 /uL (0-900); Monocytes Percent Auto 9.5 % (3-14); Neutrophils Absolute Auto 8200 /uL (1500-7000); Neutrophils Percent Auto 78.5 % (50-75); Platelet Count 165 X10^3/uL (150-400); Red Blood Cell Count 4.31 X10^6/uL (4.0-5.2); Red Cell Distribution Width 13.3 % (11.6-14.8); White Blood Cell Count 10.4 X10^3/uL (4.5-11.0)
--- NOTE | 2022-07-12 07:15 | PM.PN.1 ---
Subjective Subjective Date Patient Seen: 07/12/22 Time Patient Seen: 13:00 Interval history: Patient notes ongoing crampy lower abdominal pain. Requesting something for the pain. No NV. Exam Vital Signs (past 8 hours): - 07/12/22 00:00 07/12/22 00:06 07/12/22 00:39 Temperature 99.1 F Pulse Rate 90 68 Respiratory Rate 17 17 Blood Pressure 123/81 122/74 Pulse Oximetry 98 99 Oxygen Delivery Method Room Air Room Air Oxygen Flow Rate 0 07/12/22 06:41 Temperature 98.4 F Pulse Rate 84 Respiratory Rate 16 Blood Pressure 110/67 Pulse Oximetry 98 Oxygen Delivery Method Oxygen Flow Rate 0 Oxygen Delivery Method Room Air Oxygen Flow Rate 0 Narrative Exam Narrative: GEN: no acute distress HEENT: dry mucous membranes, PERRL NECK: trachea midline, no JVD PULM: clear bilaterally, not labored CV: regular rate and rhythm ABD: soft, tenderness to palpation of lower quadrants EXT: warm and well perfused with no edema SKIN: no petechia noted NEURO: awake, alert, oriented, no focal deficits noted Objective Labs Result Diagrams: 07/12/22 06:30 07/12/22 06:30 Labs: Laboratory Results - last 24 hr 07/11/22 07/11/22 07/11/22 20:15 20:15 20:34 WBC 12.5 H RBC 4.59 Hgb 13.2 Hct 38.9 MCV 84.9 MCH 28.8 MCHC 33.9 RDW 13.1 Plt Count 192 Neut % (Auto) 78.6 H Lymph % (Auto) 11.4 L [place] % (Auto) 8.5 Eos % (Auto) 0.7 L Baso % (Auto) 0.8 Neut # (Auto) 9800 H Lymph # (Auto) 1400 [place] # (Auto) 1100 H Eos # (Auto) 100 Baso # (Auto) 100 Sodium 134 L Potassium 3.3 L Chloride 104 Carbon Dioxide 23 BUN 5 L Creatinine 0.83 Estimated GFR > 60 BUN/Creatinine Ratio 6.0 Glucose 140 H Calcium 8.5 Total Bilirubin 0.2 AST 20 ALT 16 Alkaline Phosphatase 68 Total Protein 6.7 Albumin 3.9 Globulin 2.8 Albumin/Globulin Ratio 1.4 Lipase 46 Stl C. cayetanensis PCR Not detected Stool Rotavirus (PCR) Not detected Stool Adenovirus (PCR) Not detected Stool Astrovirus (PCR) Not detected Stool Cryptosporidium PCR Not detected Stl E.coli Shiga Tox PCR Detected H St Sh/Enteroin Ecoli PCR Not detected Stool E coli O157 PCR Not Reportable Stl Enterotoxigenic E PCR Not detected Stool EPEC (PCR) Not Reportable Stl E. histolytica PCR Not detected Stool Giardia Lamblia PCR Not detected Stool Sapovirus (PCR) Not detected Stl P. shigelloides PCR Not detected St Y.enterocolitica PCR Not detected Stool Vibrio (PCR) Not detected Stl Vibrio cholerae PCR Not detected Stl Enteroaggr Ecoli PCR Not detected Stl Norovirus GI/GII PCR Not detected Campylobacter (PCR) Not detected C. difficile Tox (PCR) Not detected SARS-CoV-2 (PCR) Salmonella (PCR) Not detected 07/11/22 07/12/22 23:25 06:30 WBC 10.4 RBC 4.31 Hgb 12.4 Hct 36.5 MCV 84.8 MCH 28.8 MCHC 34.0 RDW 13.3 Plt Count 165 Neut % (Auto) 78.5 H Lymph % (Auto) 10.5 L [place] % (Auto) 9.5 Eos % (Auto) 1.2 L Baso % (Auto) 0.3 Neut # (Auto) 8200 H Lymph # (Auto) 1100 [place] # (Auto) 1000 H Eos # (Auto) 100 Baso # (Auto) 0 Sodium Potassium Chloride Carbon Dioxide BUN Creatinine Estimated GFR BUN/Creatinine Ratio Glucose Calcium Total Bilirubin AST ALT Alkaline Phosphatase Total Protein Albumin Globulin Albumin/Globulin Ratio Lipase Stl C. cayetanensis PCR Stool Rotavirus (PCR) Stool Adenovirus (PCR) Stool Astrovirus (PCR) Stool Cryptosporidium PCR Stl E.coli Shiga Tox PCR St Sh/Enteroin Ecoli PCR Stool E coli O157 PCR Stl Enterotoxigenic E PCR Stool EPEC (PCR) Stl E. histolytica PCR Stool Giardia Lamblia PCR Stool Sapovirus (PCR) Stl P. shigelloides PCR St Y.enterocolitica PCR Stool Vibrio (PCR) Stl Vibrio cholerae PCR Stl Enteroaggr Ecoli PCR Stl Norovirus GI/GII PCR Campylobacter (PCR) C. difficile Tox (PCR) SARS-CoV-2 (PCR) Negative Salmonella (PCR) [facility] Medical History Acne Anxiety as acute reaction to exceptional stress (04/30/17) Eczema (2002) FHx: melanoma Generalized anxiety disorder with panic attacks Intentional weight loss Scoliosis of thoracolumbar spine Surgical History History of breast augmentation (04/2016) Family History Mother Cancer Father No problems noted. Grandmother Cancer Social History household members: spouse and children Smoking Status: Never smoker Assessment & Plan Assessment & Plan narrative: Ms. Miller is a 32W who presents with diarrhea. # shiga toxin producing E. Coli, acute gastroenteritis -shiga toxin positive -reported to public health -continue IV fluids to maintain euvolemia -normal hgb, wbc, creatinine, no evidence of HUS -avoid antibiotics, avoid agents that slow gut motility -suspect CT findings related to infection, follow up with PCP as necessary pending clinical course -contact precautions -monitor Cr # abdominal pain secondary to acute gastroenteritis -dilaudid IV PRN # anxiety, chronic -continue home ativan po PRN CODE: Full Proxy: Mata Miller I have utilized all available resources to reconcile the patient's home medications Time Spent With Patient Critical Care time: I spent a total of [] minutes of critical care time on this patient's care today; this time is exclusive of procedural time. Quality VTE Deep Vein Thrombosis/Pulmonary Embolism Present on Admission: No
[2022-07-12 07:20] LABS: BUN Creatinine Ratio 3.6 (6-22); Blood Urea Nitrogen 3 mg/dL (7-17); Calcium 8.1 mg/dL (8.4-10.2); Carbon Dioxide 25 mmol/L (22-32); Chloride 108 mmol/L (98-107); Estimated Glomerular Filt Rate > 60 mL/min (>60); Glucose 93 mg/dL (70-100); HEMOLYSIS < 15 (0-50); Potassium 3.6 mmol/L (3.4-5.1); Sodium 135 mmol/L (137-145)
--- NOTE | 2022-07-12 08:58 | CM.DANOTE ---
DCP: Case received, EMR reviewed and met with patient. Did not fully enter room, secondary to her being on precautions. Was able to complete DCP assessment based upon some information given by patient. Patient is a 32 year old female who admitted yesterday evening to the care of the hospitalist team. PCP: Dr. Mackey. Payer: confirmed: [employer]icaid. Patient came to the hospital via private vehicle secondary to having abdominal pain over the past couple of days, as well as several episodes of diarrhea. Notes indicate that patient has had no recent international travel, or exposure to sick individuals. Patient was diagnosed with Shiga toxin producing e-coli, and acute gastroenteritis. Notes indicate that this was reported to public health. Patient will receive IV fluids to maintain euvolemia. Met with patient in her doorway of her room. She was sitting up in bed, alert and oriented. Confirmed that she resides here in [place] with her spouse, Mata. Confirmed that her primary care provider is now Dr. Mackey, at [facility] ([facility] P: DCP to continue to follow. Patient should be able to discharge home when she is deemed medically stable. Princess Vee RN/Asbestos Surveyor Discharge Planning/Care Management CM Discharge Assessment Start: 07/12/22 08:55 Freq: Status: Active Protocol: Document 07/12/22 08:56 (Rec: 07/12/22 08:58 [id number]) Discharge Planning Assessment Assigned Director Of Manufacturing Princess Vee RN/Asbestos Surveyor Advance Directives? No History Provided By Patient,Medical Record Prior Living Arrangements House Household Members spouse,children Type of transporation used prior to Drives own vehicle admit Independent with ADL's Yes Is patient alert and oriented? Yes Caregiver for Another No Barriers to Discharge No Discharge Plan Home Transportation Arrangement Self, or spouse Referrals Initiated None needed Whiteboard Updated in Patient Room with No name and ext. # of Director Of Manufacturing Comment Patient is in islolation, did not fully enter room. Review Status In Process Next Review Type Continued Stay Review
[2022-07-12] MEDS: LORazepam 0.5 MG TABLET PO ×2 (11:55→18:17)
[2022-07-12 12:10] LABS: Shiga-like toxin-prod E.coli Detected (Not Detect)
[2022-07-12] MEDS: HYDROMORPHONE 0.5 MG INJ IV ×2 (13:26→16:17)
[2022-07-12] MEDS: ACETAMINOPHEN 325 MG TABLET PO (21:41)
[2022-07-12] MEDS: SODIUM CHLORIDE 0.9% 500 ML 1000 ML IV (23:13)
[2022-07-13] MEDS: LORazepam 0.5 MG TABLET PO ×3 (00:55→21:32)
[2022-07-13 06:39] VITALS: BP 99/60; PULSE 93; RESP 18; TEMP 37; O2SAT 97
--- NOTE | 2022-07-13 07:11 | PM.PN.1 ---
Subjective Subjective Date Patient Seen: 07/13/22 Time Patient Seen: 09:00 Interval history: Patient feeling ok. Still having intermittent crampy lower quadrant abd pain. Had >10 diarrhea episodes yesterday but stool becoming less bloody. No other complaints. Exam Vital Signs (past 8 hours): - 07/13/22 06:39 Temperature 98.6 F Pulse Rate 93 H Respiratory Rate 18 Blood Pressure 99/60 Pulse Oximetry 97 Oxygen Delivery Method Room Air Oxygen Flow Rate 0 Narrative Exam Narrative: GEN: no acute distress HEENT: dry mucous membranes, PERRL NECK: trachea midline, no JVD PULM: clear bilaterally, not labored CV: regular rate and rhythm ABD: soft, tenderness to palpation of lower quadrants EXT: warm and well perfused with no edema SKIN: no petechia noted NEURO: awake, alert, oriented, no focal deficits noted Objective Labs Result Diagrams: 07/13/22 05:50 07/13/22 05:50 Labs: Laboratory Results - last 24 hr 07/11/22 07/12/22 20:34 06:30 Sodium 135 L Potassium 3.6 Chloride 108 H Carbon Dioxide 25 BUN 3 L Creatinine 0.83 Estimated GFR > 60 BUN/Creatinine Ratio 3.6 L Glucose 93 Calcium 8.1 L Stl E.coli Shiga Tox PCR Detected H Stool E coli O157 PCR Not detected [facility] Medical History Acne Anxiety as acute reaction to exceptional stress (04/30/17) Eczema (2002) FHx: melanoma Generalized anxiety disorder with panic attacks Intentional weight loss Scoliosis of thoracolumbar spine Surgical History History of breast augmentation (04/2016) Family History Mother Cancer Father No problems noted. Grandmother Cancer Social History household members: spouse and children Smoking Status: Never smoker Assessment & Plan Assessment & Plan narrative: Ms. Miller is a 32W who presents with 30+ episodes of acute bloody diarrhea. # shiga toxin producing E. 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 Lambert, nephrology at [facility] who recommended peripheral smear and -avoid antibiotics, avoid agents that slow gut motility such as opioids and imodium -suspect CT findings related to infection, follow up with PCP as necessary pending clinical course -contact precautions -monitor Cr, Hct, platelets and Hgb # abdominal pain secondary to acute gastroenteritis -fluid boluses PRN # anxiety, chronic -continue home ativan po PRN CODE: Full Proxy: Mata Miller I have utilized all available resources to reconcile the patient's home medications Dispo: Pending improvement of diarrhea and uptrending platelets. Will need repeat stool PCR prior to discharge. Time Spent With Patient Critical Care time: I spent a total of [] minutes of critical care time on this patient's care today; this time is exclusive of procedural time. Quality VTE Deep Vein Thrombosis/Pulmonary Embolism Present on Admission: No
[2022-07-13 07:29] LABS: Add Manual Diff / Slide Review NO; Basophils Absolute Auto 0 /uL (0-100); Basophils Percent Auto 0.3 % (0-2); Eosinophils Absolute Auto 100 /uL (0-450); Eosinophils Percent Auto 0.8 % (2-4); Hematocrit 35.8 % (36-46); Hemoglobin 12.2 g/dL (12.0-16.0); Lymphocytes Absolute Auto 1100 /uL (1100-4500); Lymphocytes Percent Auto 8.4 % (25-40); Mean Corpuscular HGB Conc 34.1 % (30-36); Mean Corpuscular Hemoglobin 28.7 PG (26-34); Mean Corpuscular Volume 84.2 fL (80-100); Monocytes Absolute Auto 800 /uL (0-900); Monocytes Percent Auto 6.7 % (3-14); Neutrophils Absolute Auto 10500 /uL (1500-7000); Neutrophils Percent Auto 83.8 % (50-75); Platelet Count 155 X10^3/uL (150-400); Red Blood Cell Count 4.25 X10^6/uL (4.0-5.2); Red Cell Distribution Width 13.2 % (11.6-14.8); White Blood Cell Count 12.5 X10^3/uL (4.5-11.0)
[2022-07-13 07:30] VITALS: O2SAT 97
[2022-07-13 07:31] LABS: Calcium 7.6 mg/dL (8.4-10.2); Carbon Dioxide 23 mmol/L (22-32); Chloride 107 mmol/L (98-107); Estimated Glomerular Filt Rate > 60 mL/min (>60); Glucose 93 mg/dL (70-100); HEMOLYSIS < 15 (0-50); Potassium 3.6 mmol/L (3.4-5.1); Sodium 133 mmol/L (137-145)
[2022-07-13 07:32] LABS: BUN Creatinine Ratio 2.9 (6-22); Blood Urea Nitrogen 2 mg/dL (7-17)
[2022-07-13] MEDS: ACETAMINOPHEN 325 MG TABLET 650 MG PO ×3 (08:50→21:34)
[2022-07-13 11:42] VITALS: BP 103/57; PULSE 90; RESP 18; TEMP 36.8; O2SAT 98
[2022-07-13] MEDS: SODIUM CHLORIDE 0.9% 250 ML IV (12:32)
[2022-07-13] MEDS: SODIUM CHLORIDE 0.9% 1,000 ML 125 ML IV (16:22)
--- NOTE | 2022-07-13 16:50 | PC.NURSE ---
Transition of Care This RN assumed care of patient at 1600. No report received from primary RN. Report received from glenny.
[2022-07-13 17:25] VITALS: BP 106/70; PULSE 92; RESP 18; TEMP 37; O2SAT 97
[2022-07-13 21:09] VITALS: BP 117/71; PULSE 97; RESP 18; TEMP 36.7; O2SAT 97
[2022-07-14 00:14] VITALS: BP 102/60; PULSE 87; RESP 18; TEMP 36.7; O2SAT 96
[2022-07-14 05:12] VITALS: BP 101/62; PULSE 89; RESP 18; TEMP 37; O2SAT 99
--- NOTE | 2022-07-14 07:36 | PM.PN.1 ---
Subjective Subjective Date Patient Seen: 07/14/22 Time Patient Seen: 08:00 Interval history: Patient feeling a little better today. Still had 10+ BM's yesterday. 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 Platelets up to 156k from 155k today. Exam Vital Signs (past 8 hours): - 07/14/22 00:14 07/14/22 05:12 Temperature 98.0 F 98.6 F Pulse Rate 87 89 Respiratory Rate 18 18 Blood Pressure 102/60 101/62 Pulse Oximetry 96 99 Oxygen Flow Rate 0 0 Oxygen Delivery Method Room Air Oxygen Flow Rate 0 Narrative Exam Narrative: GEN: no acute distress HEENT: dry mucous membranes, PERRL NECK: trachea midline, no JVD PULM: clear bilaterally, not labored CV: regular rate and rhythm ABD: soft, tenderness to palpation of lower quadrants EXT: warm and well perfused with no edema SKIN: no petechia noted NEURO: awake, alert, oriented, no focal deficits noted Objective Labs Result Diagrams: 07/14/22 06:20 07/14/22 06:20 [facility] Medical History Acne Anxiety as acute reaction to exceptional stress (04/30/17) Eczema (2002) FHx: melanoma Generalized anxiety disorder with panic attacks Intentional weight loss Scoliosis of thoracolumbar spine Surgical History History of breast augmentation (04/2016) Family History Mother Cancer Father No problems noted. Grandmother Cancer Social History household members: spouse and children Smoking Status: Never smoker Assessment & Plan Assessment & Plan narrative: Ms. Miller is a 32W who presents with 30+ episodes of acute bloody diarrhea. # shiga toxin producing E. 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 Lambert, nephrology at [facility] who recommended peripheral smear and -avoid antibiotics, avoid agents that slow gut motility such as opioids and imodium -suspect CT findings related to infection, follow up with PCP as necessary pending clinical course -contact precautions -monitor Cr, Hct, platelets and Hgb # abdominal pain secondary to acute gastroenteritis -fluid boluses PRN # anxiety, chronic -continue home ativan po PRN CODE: Full Proxy: Mata Miller I have utilized all available resources to reconcile the patient's home medications Dispo: Pending improvement of diarrhea and uptrending platelets. Will need repeat stool PCR prior to discharge. Time Spent With Patient Critical Care time: I spent a total of [] minutes of critical care time on this patient's care today; this time is exclusive of procedural time. Quality VTE Deep Vein Thrombosis/Pulmonary Embolism Present on Admission: No
[2022-07-14] MEDS: SODIUM CHLORIDE 0.9% 1,000 ML 125 ML IV ×2 (07:40→16:16)
[2022-07-14 07:46] VITALS: O2SAT 98
[2022-07-14 07:57] LABS: Add Manual Diff / Slide Review NO; Basophils Absolute Auto 0 /uL (0-100); Basophils Percent Auto 0.2 % (0-2); Eosinophils Absolute Auto 100 /uL (0-450); Eosinophils Percent Auto 1.3 % (2-4); Hematocrit 34.6 % (36-46); Hemoglobin 11.9 g/dL (12.0-16.0); Lymphocytes Absolute Auto 1200 /uL (1100-4500); Lymphocytes Percent Auto 10.9 % (25-40); Mean Corpuscular HGB Conc 34.3 % (30-36); Mean Corpuscular Hemoglobin 29.1 PG (26-34); Mean Corpuscular Volume 84.9 fL (80-100); Monocytes Absolute Auto 700 /uL (0-900); Monocytes Percent Auto 6.4 % (3-14); Neutrophils Absolute Auto 9300 /uL (1500-7000); Neutrophils Percent Auto 81.2 % (50-75); Platelet Count 156 X10^3/uL (150-400); Red Blood Cell Count 4.08 X10^6/uL (4.0-5.2); Red Cell Distribution Width 13.4 % (11.6-14.8); White Blood Cell Count 11.4 X10^3/uL (4.5-11.0)
[2022-07-14 08:19] LABS: Calcium 7.6 mg/dL (8.4-10.2); Carbon Dioxide 22 mmol/L (22-32); Chloride 109 mmol/L (98-107); Estimated Glomerular Filt Rate > 60 mL/min (>60); Glucose 80 mg/dL (70-100); HEMOLYSIS < 15 (0-50); Potassium 3.6 mmol/L (3.4-5.1); Sodium 136 mmol/L (137-145)
[2022-07-14 08:21] LABS: BUN Creatinine Ratio 3.2 (6-22); Blood Urea Nitrogen < 2 mg/dL (7-17)
[2022-07-14 11:25] VITALS: BP 111/73; PULSE 103; RESP 16; TEMP 36.7; O2SAT 99
[2022-07-14] MEDS: LORazepam 0.5 MG TABLET PO ×2 (12:34→20:38)
[2022-07-14] MEDS: ACETAMINOPHEN 325 MG TABLET 650 MG PO (12:34)
[2022-07-14 17:50] VITALS: BP 93/58; PULSE 84; RESP 16; TEMP 37.3; O2SAT 100
[2022-07-15] VITALS: BP 95/56; PULSE 86; RESP 18; TEMP 36.6; O2SAT 98
[2022-07-15 06:00] VITALS: BP 97/55; PULSE 88; RESP 18; TEMP 37; O2SAT 98
--- NOTE | 2022-07-15 07:07 | PM.PN.1 ---
Exam Vital Signs (past 8 hours): - 07/15/22 00:00 07/15/22 06:00 Temperature 97.8 F 98.6 F Pulse Rate 86 88 Respiratory Rate 18 18 Blood Pressure 95/56 L 97/55 L Pulse Oximetry 98 98 Oxygen Flow Rate 0 0 Oxygen Delivery Method Room Air Oxygen Flow Rate 0 Narrative Exam Narrative: GEN: no acute distress HEENT: dry mucous membranes, PERRL NECK: trachea midline, no JVD PULM: clear bilaterally, not labored CV: regular rate and rhythm ABD: soft, tenderness to palpation of lower quadrants EXT: warm and well perfused with no edema SKIN: no petechia noted NEURO: awake, alert, oriented, no focal deficits noted Objective Labs Result Diagrams: 07/14/22 06:20 07/14/22 06:20 Labs: Laboratory Results - last 24 hr 07/14/22 07/14/22 06:20 06:20 WBC 11.4 H RBC 4.08 Hgb 11.9 L Hct 34.6 L MCV 84.9 MCH 29.1 MCHC 34.3 RDW 13.4 Plt Count 156 Neut % (Auto) 81.2 H Lymph % (Auto) 10.9 L [place] % (Auto) 6.4 Eos % (Auto) 1.3 L Baso % (Auto) 0.2 Neut # (Auto) 9300 H Lymph # (Auto) 1200 [place] # (Auto) 700 Eos # (Auto) 100 Baso # (Auto) 0 Sodium 136 L Potassium 3.6 Chloride 109 H Carbon Dioxide 22 BUN < 2 L Creatinine 0.63 Estimated GFR > 60 BUN/Creatinine Ratio 3.2 L Glucose 80 Calcium 7.6 L PFSH Medical History Acne Anxiety as acute reaction to exceptional stress (04/30/17) Eczema (2002) FHx: melanoma Generalized anxiety disorder with panic attacks Intentional weight loss Scoliosis of thoracolumbar spine Surgical History History of breast augmentation (04/2016) Family History Mother Cancer Father No problems noted. Grandmother Cancer Social History household members: spouse and children Smoking Status: Never smoker Assessment & Plan Assessment & Plan narrative: Ms. Miller is a 32W who presents with 30+ episodes of acute bloody diarrhea. # shiga toxin producing E. 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 Lambert, nephrology at [facility] who recommended peripheral smear and -avoid antibiotics, avoid agents that slow gut motility such as opioids and imodium -suspect CT findings related to infection, follow up with PCP as necessary pending clinical course -contact precautions -monitor Cr, Hct, platelets and Hgb # abdominal pain secondary to acute gastroenteritis -fluid boluses PRN # anxiety, chronic -continue home ativan po PRN CODE: Full Proxy: Mata Miller I have utilized all available resources to reconcile the patient's home medications Dispo: Pending improvement of diarrhea and uptrending platelets. Will need repeat stool PCR prior to discharge. Time Spent With Patient Critical Care time: I spent a total of [] minutes of critical care time on this patient's care today; this time is exclusive of procedural time. Quality VTE Deep Vein Thrombosis/Pulmonary Embolism Present on Admission: No
[2022-07-15] MEDS: SODIUM CHLORIDE 0.9% 1,000 ML 125 ML IV (07:24)
[2022-07-15 07:40] VITALS: O2SAT 98
[2022-07-15 09:02] LABS: Add Manual Diff / Slide Review NO; Basophils Absolute Auto 0 /uL (0-100); Basophils Percent Auto 0.6 % (0-2); Eosinophils Absolute Auto 200 /uL (0-450); Eosinophils Percent Auto 2.3 % (2-4); Hemoglobin 12.6 g/dL (12.0-16.0); Lymphocytes Absolute Auto 1200 /uL (1100-4500); Lymphocytes Percent Auto 16.1 % (25-40); Mean Corpuscular HGB Conc 34.1 % (30-36); Mean Corpuscular Hemoglobin 28.8 PG (26-34); Mean Corpuscular Volume 84.4 fL (80-100); Monocytes Absolute Auto 500 /uL (0-900); Monocytes Percent Auto 6.6 % (3-14); Neutrophils Absolute Auto 5700 /uL (1500-7000); Neutrophils Percent Auto 74.4 % (50-75); Platelet Count 181 X10^3/uL (150-400); Red Blood Cell Count 4.39 X10^6/uL (4.0-5.2); Red Cell Distribution Width 13.2 % (11.6-14.8); White Blood Cell Count 7.6 X10^3/uL (4.5-11.0)
[2022-07-15 10:31] LABS: BUN Creatinine Ratio 3.1 (6-22); Blood Urea Nitrogen < 2 mg/dL (7-17); Calcium 8.2 mg/dL (8.4-10.2); Carbon Dioxide 26 mmol/L (22-32); Chloride 108 mmol/L (98-107); Estimated Glomerular Filt Rate > 60 mL/min (>60); Glucose 88 mg/dL (70-100); HEMOLYSIS < 15 (0-50); Potassium 3.7 mmol/L (3.4-5.1); Sodium 137 mmol/L (137-145)
[2022-07-15 12:00] VITALS: BP 103/80; PULSE 86; RESP 16; TEMP 36.2; O2SAT 98
--- NOTE | 2022-07-15 13:50 | DIET.CONS2 ---
Dietary Inpatient Consultation Note Admission Date: 07/11/2022 23:35 Pt lactose intolerant on full liquid diet. Pt desires mashed potatoes. RD okays mashed potatoes c dinner. Diet: 07/15/22 Lunch Full Liquid Diet Diet Modifications: Nutrition Percent Meal Consumed 100% 07/15/22 12:00 Percent Meal Consumed 25% 07/15/22 09:48 Percent Meal Consumed 50% 07/14/22 17:50 Percent Meal Consumed 50% 07/14/22 09:19 Electronically Signed by: Janett Wilder 07/15/22 13:50 Clinical Dietitian [address] [address]
--- NOTE | 2022-07-15 19:17 | PM.DS.1 ---
History of Present Illness History of Present Illness Date Patient Seen: 07/15/22 Time Patient Seen: 14:00 Chief complaint: Extreme ABD pain Narrative: Ms. Miller is a 32W who has been good state of health who now presents with abdominal discomfort and diarrhea. She noted abdominal pain beginning approximately 2 weeks ago. She then had improvement in her symptoms, except for intermittent bloating, discomfort and diarrhea. Yesterday she notably worsened developing frequent diarrhea. Today she had profuse diarrhea, she believes with blood, she felt lightheaded and weak. She had nausea. No vomiting. No other sick contacts with similar symptoms. No travel In the ED workup was done, vitals notable for tachycardia in the 110s. Labs notable for WBC 12.5, hgb 13.2, plts 192. K 3.3, creatinine 0.83. Shiga toxin PCR positive. CT showed abnormal colon wall thickening from cecum to hepatic flexure which could not rule out malignancy vs infection. She was given IV fluids and admitted for further treatment. Discharge Providers Provider Date of admission: 07/11/22 23:35 Discharge Date: 07/15/22 Primary care physician: Doctor Kenzie MD Discharge provider: Alejo Quinn DO Summary Hospital Course Discharge Diagnosis: Ms. Miller is a 32W who presents with 30+ episodes of acute bloody diarrhea. # shiga toxin producing E. 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 Lambert, nephrology at [facility] who recommended peripheral smear and -avoid antibiotics, avoid agents that slow gut motility such as opioids and imodium -suspect CT findings related to infection, follow up with PCP as necessary pending clinical course -contact precautions -Cr, Hct, platelets and Hgb all remained stable and platelets began to increase signifying unlikely to progress to HUS # abdominal pain secondary to acute gastroenteritis -fluid boluses PRN # anxiety, chronic -continue home ativan po PRN Hospital Course: Admitted for acute diarrhea which abd pain and stool PCR showed Shiga toxin. Placed in isolation and IV fluids started. Patient monitored closely for HUS with daily labs. Hgb, Hct and platelets began to downtrend with plts getting as low as 155. Patient had abd pain treated with IV fluid boluses. She continued to have 10+ diarrheal episodes per day which improved after several days down to 3-4. 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 If still positive she was told to f/u with her PCP to have another stool test done. Patient understood and agreed. Time Spent with Patient Time spent: Greater than 30 minutes Exam Vital Signs (past 8 hours): - 07/15/22 12:00 Temperature 97.2 F L Pulse Rate 86 Respiratory Rate 16 Blood Pressure 103/80 Pulse Oximetry 98 Oxygen Flow Rate 0 Oxygen Delivery Method Room Air Oxygen Flow Rate 0 Narrative Exam Narrative: GEN: no acute distress HEENT: dry mucous membranes, PERRL NECK: trachea midline, no JVD PULM: clear bilaterally, not labored CV: regular rate and rhythm ABD: soft, tenderness to palpation of lower quadrants EXT: warm and well perfused with no edema SKIN: no petechia noted NEURO: awake, alert, oriented, no focal deficits noted Objective Labs Result Diagrams: 07/15/22 08:35 07/15/22 08:35 Labs: Laboratory Results - last 24 hr 07/13/22 07/15/22 07/15/22 05:50 08:35 08:35 WBC 7.6 RBC 4.39 Hgb 12.6 Hct 37.0 MCV 84.4 MCH 28.8 MCHC 34.1 RDW 13.2 Plt Count 181 Neut % (Auto) 74.4 Lymph % (Auto) 16.1 L [place] % (Auto) 6.6 Eos % (Auto) 2.3 Baso % (Auto) 0.6 Neut # (Auto) 5700 Lymph # (Auto) 1200 [place] # (Auto) 500 Eos # (Auto) 200 Baso # (Auto) 0 Smear Path Review Sodium 137 Potassium 3.7 Chloride 108 H Carbon Dioxide 26 BUN < 2 L Creatinine 0.64 Estimated GFR > 60 BUN/Creatinine Ratio 3.1 L Glucose 88 Calcium 8.2 L [facility] Medical History Acne Anxiety as acute reaction to exceptional stress (04/30/17) Eczema (2002) FHx: melanoma Generalized anxiety disorder with panic attacks Intentional weight loss Scoliosis of thoracolumbar spine Surgical History History of breast augmentation (04/2016) Family History Mother Cancer Father No problems noted. Grandmother Cancer Social History household members: spouse and children Smoking Status: Never smoker Discharge Plan Discharge Plan Patient Disposition: Home Provider Discharge Comment: You had a gut infection with Shiga toxin E. coli. You're diarrhea improved and your labs also got better and didn't show any sign of kidney damage, which is a feared side-effect. We are still waiting on your repeat stool culture results so please do not work again until these return negative. I would make an appt with your PCP viky just in case they come back positive so they can repeat check it again so you can get back to work on time. Discharge orders & Medications Prescriptions: Continued clonazepam 0.5 mg tablet 0.5 mg PO DAILY PRN (Reason: anxiety) Qty: 30 5RF Follow up/Referrals: Doctor Espino MD [Primary Care Provider] - Discharge Data Primary Care Provider: Doctor Kenzie Quality VTE Deep Vein Thrombosis/Pulmonary Embolism Present on Admission: No
== END 2022-07-15 17:07 | disposition home or self-care (01) | DRG 248 ==
LOC: ED 23:07 → AC 23:36
PROVIDERS: Student in an Organized Health Care Education/Training Program; Admitting Provider Internal Medicine; Emergency Provider Emergency Medicine; Family Provider Student in an Organized Health Care Education/Training Program; Referring Provider Emergency Medicine; Visit Provider Internal Medicine
DX: A04.4 Other intestinal Escherichia coli infections (principal); B96.21 Shiga toxin-producing Escherichia coli [E. coli] [STEC] O157 as the cause of diseases classified elsewhere; F41.9 Anxiety disorder, unspecified; Z20.822 Contact with and (suspected) exposure to COVID-19
CPT/HCPCS: 36415; 74177; 80048; 80053; 81003; 81025; 83690; 85025; 87507; 87635; 87801; 93005; 99284; C9803; J1170; Q9967

== ENCOUNTER → 2022-07-22 07:25 | Outpatient (CLI) | payer OTHER, MEDICAID, SELFPAY ==
[2022-07-11 23:38] VITALS: BMI 21.4
== END ==
PROVIDERS: Family Provider Student in an Organized Health Care Education/Training Program; PCP Family Medicine; Referring Provider Family Medicine; Visit Provider Family Medicine
DX: A49.8 Other bacterial infections of unspecified site (principal)
CPT/HCPCS: 36415; 87427

== ENCOUNTER → 2022-08-03 17:10 | Outpatient (CLI) | payer OTHER, MEDICAID, SELFPAY ==
[2022-07-11 23:38] VITALS: BMI 21.4
[2022-08-03 17:49] LABS: Add Manual Diff / Slide Review NO; Basophils Absolute Auto 100 /uL (0-100); Basophils Percent Auto 0.8 % (0-2); Eosinophils Absolute Auto 100 /uL (0-450); Eosinophils Percent Auto 1.7 % (2-4); Hemoglobin 13.1 g/dL (12.0-16.0); Lymphocytes Absolute Auto 1800 /uL (1100-4500); Lymphocytes Percent Auto 23.6 % (25-40); Mean Corpuscular HGB Conc 33.7 % (30-36); Mean Corpuscular Hemoglobin 28.8 PG (26-34); Mean Corpuscular Volume 85.5 fL (80-100); Monocytes Absolute Auto 600 /uL (0-900); Monocytes Percent Auto 7.6 % (3-14); Neutrophils Absolute Auto 5100 /uL (1500-7000); Neutrophils Percent Auto 66.3 % (50-75); Platelet Count 242 X10^3/uL (150-400); Red Blood Cell Count 4.56 X10^6/uL (4.0-5.2); Red Cell Distribution Width 13.9 % (11.6-14.8); White Blood Cell Count 7.7 X10^3/uL (4.5-11.0)
[2022-08-03 17:56] LABS: INR 0.9 (0.9-1.3); Prothrombin Time 10.6 SECONDS (10.1-12.7)
[2022-08-03 18:03] LABS: Alanine Aminotransferase 15 IU/L (<35); Albumin 4.3 g/dL (3.5-5.0); Albumin Globulin Ratio 1.5 (1.0-2.8); Alkaline Phosphatase 62 U/L (38-126); Aspartate Aminotransferase 23 IU/L (14-36); BUN Creatinine Ratio 12.8 (6-22); Bilirubin Total 0.2 mg/dL (0.2-1.3); Blood Urea Nitrogen 11 mg/dL (7-17); Carbon Dioxide 28 mmol/L (22-32); Chloride 99 mmol/L (98-107); Estimated Glomerular Filt Rate > 60 mL/min (>60); Globulin 2.8 g/dL (1.7-4.1); Glucose 90 mg/dL (70-100); HEMOLYSIS < 15 (0-50); Potassium 3.4 mmol/L (3.4-5.1); Sodium 137 mmol/L (137-145); Total Protein 7.1 g/dL (6.3-8.2)
[2022-08-05 18:48] LABS: von Willebrand Factor Activity 176 % (50-200)
== END ==
PROVIDERS: Family Provider Student in an Organized Health Care Education/Training Program; PCP Family Medicine; Referring Provider Family Medicine; Visit Provider Family Medicine
DX: R23.3 Spontaneous ecchymoses (principal)
CPT/HCPCS: 36415; 80053; 85025; 85245; 85610

== ENCOUNTER → 2022-10-05 16:46 | Outpatient (CLI) | payer OTHER, MEDICAID, SELFPAY ==
[2022-10-05 18:04] LABS: Vitamin D 25 Hydroxy (D3) 30.2 ng/mL (30.0-100.0)
[2022-10-05 18:18] LABS: TSH w/ Reflex to FT4 1.46 uIU/mL (0.47-4.68)
[2022-10-06 14:30] LABS: Vitamin B12 278 pg/mL (239-931)
[2022-10-10 15:21] LABS: ANA Screen, IFA Positive (.)
== END ==
PROVIDERS: Family Provider Student in an Organized Health Care Education/Training Program; PCP Family Medicine; Referring Provider Family Medicine; Visit Provider Family Medicine
DX: R23.3 Spontaneous ecchymoses (principal); R53.83 Other fatigue; R61 Generalized hyperhidrosis; R68.82 Decreased libido; Z98.82 Breast implant status
CPT/HCPCS: 36415; 82306; 82607; 84443; 86038

== ENCOUNTER → 2022-10-26 16:10 | Outpatient (CLI) | payer OTHER, MEDICAID, SELFPAY ==
--- NOTE | 2022-10-26 16:13 | DI.RAD.S_ITS ---
PROCEDURE: XR CHEST 2V INDICATIONS: Rule out tuberculosis TECHNIQUE: 2 views of the chest were acquired. COMPARISON: [facility], CR, XR CHEST 2V, 07/12/2019, 13:20. FINDINGS: Surgical changes and devices: None. Lungs and pleura: Lungs are clear. No pleural effusions or pneumothorax. Mediastinum: Mediastinal contours are normal. Heart size is normal. Bones and chest wall: No suspicious bony abnormalities. Soft tissues appear unremarkable. Convex right thoracolumbar scoliosis IMPRESSION: No acute cardiopulmonary findings. No evidence of active tuberculosis. Thoracolumbar dextroscoliosis Approved by: Han Lopez M.D. on 10/27/2022 at 13:51
[2022-10-26 18:49] LABS: Appearance Urine UA CLEAR; Bilirubin Urine UA NEGATIVE (NEGATIVE); Color Urine UA YELLOW; Glucose Urine UA NEGATIVE (Negative); Ketones Urine UA NEGATIVE (NEGATIVE); Leukocyte Esterase Urine UA TRACE (NEGATIVE); Nitrite Urine UA NEGATIVE (Negative); Occult Blood Urine UA NEGATIVE (Negative); Protein Urine UA NEGATIVE (Negative); Specific Gravity Urine UA <=1.005 (1.000-1.035); Urobilinogen Urine UA 0.2 E.U./dL (0.2)
[2022-10-26 19:02] LABS: RBC Urine None Seen (0-5/HPF); WBC Urine 5-10/HPF (0-5/HPF)
[2022-10-26 19:03] LABS: Bacteria Urine Few (2-10); Culture Indicated Urine Specimen Cultured; Squamous Epithelial Cell Urine 10-30 /HPF (0-5/HPF)
[2022-10-27 03:08] LABS: C-Reactive Protein Quant < 0.5 mg/dL (<1.0)
[2022-10-30 13:47] LABS: Epstein-Barr DNA Quant, PCR Negative (Negative)
== END ==
PROVIDERS: Family Provider Student in an Organized Health Care Education/Training Program; PCP Family Medicine; Referring Provider Family Medicine; Visit Provider Family Medicine
DX: R23.3 Spontaneous ecchymoses (principal); R53.83 Other fatigue; R61 Generalized hyperhidrosis; R68.82 Decreased libido; R10.2 Pelvic and perineal pain
CPT/HCPCS: 36415; 71046; 81001; 86140; 86480; 87086; 87798

== ENCOUNTER → 2022-11-12 16:47 | Outpatient (CLI) | payer OTHER, MEDICAID, SELFPAY ==
[2022-11-16 00:47] LABS: QuantiFERON Mitogen Value >10.00 IU/mL (.); QuantiFERON Nil Value 0.07 IU/mL (.); QuantiFERON TB Gold Plus Negative (Negative); QuantiFERON TB1 Ag Value 0.23 IU/mL (.); QuantiFERON TB2 Ag Value 0.21 IU/mL (.)
== END ==
PROVIDERS: Family Provider Student in an Organized Health Care Education/Training Program; PCP Family Medicine; Referring Provider Family Medicine; Visit Provider Family Medicine
DX: R23.3 Spontaneous ecchymoses (principal); R53.83 Other fatigue; R59.9 Enlarged lymph nodes, unspecified; R61 Generalized hyperhidrosis
CPT/HCPCS: 36415; 86480

== ENCOUNTER 2022-11-16 13:09 | Emergency (ER) | payer OTHER, MEDICAID, SELFPAY | END 2022-11-16 14:17 | disposition left against medical advice (07) | PROVIDERS: Emergency Provider Emergency Medicine; Family Provider Student in an Organized Health Care Education/Training Program; PCP Family Medicine ==

== ENCOUNTER → 2023-06-28 08:51 | Outpatient (CLI) | payer OTHER, MEDICAID, SELFPAY ==
[2023-06-28 10:07] LABS: Add Manual Diff / Slide Review NO; Basophils Absolute Auto 100 /uL (0-100); Basophils Percent Auto 0.8 % (0-2); Eosinophils Absolute Auto 100 /uL (0-450); Eosinophils Percent Auto 1.8 % (2-4); Hematocrit 42.9 % (36-46); Hemoglobin 14.5 g/dL (12.0-16.0); Lymphocytes Absolute Auto 1400 /uL (1100-4500); Lymphocytes Percent Auto 22.9 % (25-40); Mean Corpuscular HGB Conc 33.8 % (30-36); Mean Corpuscular Volume 85.7 fL (80-100); Monocytes Absolute Auto 400 /uL (0-900); Monocytes Percent Auto 6.3 % (3-14); Neutrophils Absolute Auto 4000 /uL (1500-7000); Neutrophils Percent Auto 68.2 % (50-75); Platelet Count 223 X10^3/uL (150-400); Red Cell Distribution Width 13.3 % (11.6-14.8); White Blood Cell Count 5.9 X10^3/uL (4.5-11.0)
[2023-06-28 10:26] LABS: Alanine Aminotransferase 25 IU/L (<35); Albumin 4.7 g/dL (3.5-5.0); Albumin Globulin Ratio 1.7 (1.0-2.8); Alkaline Phosphatase 57 U/L (38-126); Aspartate Aminotransferase 30 IU/L (14-36); BUN Creatinine Ratio 9.9 (6-22); Bilirubin Total 0.7 mg/dL (0.2-1.3); Blood Urea Nitrogen 8 mg/dL (7-17); C-Reactive Protein Quant < 0.5 mg/dL (<1.0); Calcium 9.8 mg/dL (8.4-10.2); Carbon Dioxide 27 mmol/L (22-32); Chloride 100 mmol/L (98-107); Estimated Glomerular Filt Rate > 60 mL/min (>60); Globulin 2.7 g/dL (1.7-4.1); Glucose 101 mg/dL (70-100); HEMOLYSIS < 15 (0-50); Potassium 4.1 mmol/L (3.4-5.1); Sodium 135 mmol/L (137-145); Total Protein 7.4 g/dL (6.3-8.2)
[2023-06-28 10:35] LABS: Erythrocyte Sedimentation Rate 1 MM/HR (0-20)
[2023-06-28 10:37] LABS: Free T3, Triiodothyronine Free 4.34 pg/mL (2.77-5.27); Free T4, Direct Thyroxine 1.16 ng/dL (0.78-2.19)
[2023-06-28 10:51] LABS: Thyroid Stimulating Hormone 0.588 uIU/mL (0.47-4.68)
[2023-07-02 13:36] LABS: ANA Screen, IFA Negative (.)
== END ==
PROVIDERS: PCP Family Medicine; Referring Provider Family Medicine; Visit Provider Family Medicine
DX: R00.2 Palpitations (principal); R53.83 Other fatigue; R55 Syncope and collapse; R61 Generalized hyperhidrosis; R68.82 Decreased libido
CPT/HCPCS: 36415; 80053; 84439; 84443; 84481; 85025; 85651; 86038; 86140

== ENCOUNTER → 2024-02-24 13:06 | Outpatient (CLI) | payer OTHER, MEDICAID, SELFPAY ==
[2024-02-24 13:56] LABS: UR Morphine/Opiate cutoff 300 Negative (Negative); Ur Creatinine Normal (Normal); Ur Specific Gravity Normal (Normal); Urine Amphetamines Negative (Negative); Urine Barbiturates Negative (Negative); Urine Benzodiazepines Negative (Negative); Urine Cocaine Negative (Negative); Urine MDMA Negative (Negative); Urine Methadone Negative (Negative); Urine Methamphetamines Negative (Negative); Urine Oxycodone Negative (Negative); Urine Phencyclidine Negative (Negative); Urine Tetrahydrocannabinol Negative (Negative); Urine Tricyclic Antidepressant Negative (Negative); Urine pH Normal (Normal)
[2024-02-24 15:12] LABS: Add Manual Diff / Slide Review NO; Basophils Absolute Auto 100 /uL (0-100); Basophils Percent Auto 0.6 % (0-2); Eosinophils Absolute Auto 100 /uL (0-450); Eosinophils Percent Auto 0.6 % (2-4); Hematocrit 39.3 % (36-46); Hemoglobin 13.2 g/dL (12.0-16.0); Lymphocytes Absolute Auto 1600 /uL (1100-4500); Lymphocytes Percent Auto 16.6 % (25-40); Mean Corpuscular HGB Conc 33.5 % (30-36); Mean Corpuscular Volume 86.8 fL (80-100); Monocytes Absolute Auto 500 /uL (0-900); Monocytes Percent Auto 5.1 % (3-14); Neutrophils Absolute Auto 7300 /uL (1500-7000); Neutrophils Percent Auto 77.1 % (50-75); Platelet Count 235 X10^3/uL (150-400); Red Blood Cell Count 4.53 X10^6/uL (4.0-5.2); White Blood Cell Count 9.5 X10^3/uL (4.5-11.0)
[2024-02-24 16:28] LABS: Alanine Aminotransferase 18 IU/L (<35); Albumin 3.9 g/dL (3.5-5.0); Albumin Globulin Ratio 1.6 (1.0-2.8); Alkaline Phosphatase 52 U/L (38-126); Aspartate Aminotransferase 25 IU/L (14-36); BUN Creatinine Ratio 21.7 (6-22); Bilirubin Total 0.3 mg/dL (0.2-1.3); Blood Urea Nitrogen 18 mg/dL (7-17); Calcium 8.8 mg/dL (8.4-10.2); Carbon Dioxide 27 mmol/L (22-32); Chloride 105 mmol/L (98-107); Estimated Glomerular Filt Rate > 60 mL/min (>60); Globulin 2.5 g/dL (1.7-4.1); Glucose 87 mg/dL (70-100); HEMOLYSIS < 15 (0-50); Potassium 3.6 mmol/L (3.4-5.1); Sodium 136 mmol/L (137-145); Total Protein 6.4 g/dL (6.3-8.2)
[2024-02-24 16:39] LABS: TSH w/ Reflex to FT4 1.64 uIU/mL (0.47-4.68)
== END ==
PROVIDERS: PCP Family Medicine; Referring Provider Physician Assistant; Visit Provider Physician Assistant
DX: F41.1 Generalized anxiety disorder (principal); F41.0 Panic disorder [episodic paroxysmal anxiety]
CPT/HCPCS: 36415; 80053; 80305; 84443; 85025

== ENCOUNTER → 2024-08-15 14:42 | Outpatient (CLI) | payer OTHER, MEDICAID, SELFPAY ==
[2024-08-15 16:02] LABS: Magnesium 1.8 mg/dL (1.6-2.3)
[2024-08-15 16:06] LABS: HEMOLYSIS < 15 (0-50); Iron 37 ug/dL (37-170)
[2024-08-15 16:16] LABS: Percent Iron Saturation 11 % (15-50); Total Iron Binding Capacity 350 ug/dL (265-497); Transferrin 287 mg/dL (206-381)
[2024-08-15 16:53] LABS: Vitamin B12 Reflex MMA if <400 632 pg/mL (239-931)
== END ==
PROVIDERS: PCP Family Medicine; Referring Provider Family Medicine; Visit Provider Family Medicine
DX: G25.81 Restless legs syndrome (principal)
CPT/HCPCS: 36415; 82306; 82607; 83540; 83550; 83735